=== PATIENT | female | born 1975 | race Caucasian/White ===

== ENCOUNTER → 2019-04-14 | Outpatient (CLI) | payer OTHER ==
--- NOTE | 2019-04-15 22:56 | SLE ---
[facility] [place] [address] POLYSOMNOGRAPHY STUDY Name: DARRELL SHOEMAKERFernie Crews Room #: REG [facility]#: [id number] Admission: 04/14/19 Attend Phys: Lee Jurado MD Discharge: Date of : 73 Report #: [id number] THIS REPORT FOR: //name// CC: Lee Bob MD DATE OF SERVICE: 04/14/2019 SLEEP STUDY ATTENDING PHYSICIAN: Dr. [place] Bob. The patient is a 43-year-old, who weighs 226 pounds with a BMI of 36.5. The patient's Otto score was 22 suggesting severe subjective hypersomnia. The patient underwent a split night study performed at [facility]. During the night study, the patient spent 453 minutes in bed and slept for 413 minutes with a normal sleep efficiency of 91%. Sleep latency was 3.3 minutes with a REM latency of 271.5 minutes. Sleep architecture showed normal stage 1 sleep, increased stage 2 sleep, normal slow wave and reduced REM sleep. During the initial diagnostic portion of the study, the patient slept for 164 minutes. During that time, the patient had 1 obstructive apnea, no mixed apnea, 1 central apnea and 77 hypopneas. The patient's apnea hypopnea index was 28.8 per hour. REM sleep was not seen during the diagnostic portion of the study. The patient's supine AHI was 67 per hour. EKG monitoring revealed an average heart rate of 86 beats per minute. No sustained arrhythmias observed. PLMs were seen at an index of 5.5 per hour and 0.7 per hour caused EEG arousals. Nocturnal oximetry study revealed an average oxygen saturation of 94% with the lowest of 83%. 1.2 minutes were spent in oxygen saturation of less than 89%. The patient was started on CPAP at 5 cm water and titrated up to 8 cm water. At the final pressure, the patient slept for 14.4 minutes including 5.4 minutes of REM sleep. The patient's AHI was reduced to 4.2 per hour and oxygen saturation remained above 90%. IMPRESSION: 1. Moderate to severe sleep apnea-hypopnea syndrome. Total apnea-hypopnea index 28.8 per hour with a supine apnea-hypopnea index of 67 per hour. 2. No clinically significant nocturnal hypoxia. 3. No clinically significant periodic limb movements. [facility] [address] [place] [address] POLYSOMNOGRAPHY STUDY Name: DARRELL SHOEMAKERFernie Crews [facility] #: [id number] Admission: 04/14/19 Attend Phys: Lee Jurado MD Discharge: Date of : 73 Report #: [id number] RECOMMENDATIONS: 1. CPAP at 8 cm water completely eliminated the patient's sleep apnea and should be used on a nightly basis. 2. Follow up in 4-6 weeks to assess compliance with CPAP and to document clinical improvement. 3. Weight loss is strongly advised. 4. Avoid PASTE [employer]IST depressants. 5. Cautioned regarding driving until symptoms of sleep apnea resolve with the use of CPAP. <ELECTRONICALLY SIGNED> By: Lee Jurado MD 04/15/19 [id number] eLe Jurado MD /nt
== END ==
LOC: SLEEPLAB 03-29 12:28
DX: G47.33 Obstructive sleep apnea (adult) (pediatric) (principal); G47.30 Sleep apnea, unspecified